=== PATIENT | female | born 1940 | race Native Hawaiian/Other Pacific Islander ===

== ENCOUNTER 2016-10-03 13:39 | Inpatient (IN) | payer OTHER ==
[~2016-10-03] VITALS: Ht 157.5 cm; Wt 81.7 kg
[~2016-10-03 13:39] MED LIST: AMLO5TAB PO; BENZ100C8 PO; CENTRATEX PO; CIPR750T PO; COZAAR25 MG PO; DILTIAZEM240 M1 PO; FURO20TA67 PO; HYDR25TA60 PO; KLOR-CON M2020 MEQ PO; LEVAQUIN250 MG PO; LIPITOR20 MG PO; METF500T PO; METO50TA27 PO; NEXIUM40 M1 PO; ROPINIROLE2 MG PO; TIROSINT75 MCG PO
[2016-10-03 14:08] VITALS: BP 148/68; TEMP 98.1
[2016-10-03 15:00] VITALS: BP 142/72
[2016-10-03 15:03] LABS: PLATELET COUNT 433 K/uL (152-353)
[2016-10-03 15:19] LABS: POTASSIUM 4.8 mmol/L (3.6-5.2)
[2016-10-03] MEDS ORDERED: IRON SUPPLEMEN325 MG OR (15:58)
[2016-10-03] MEDS ORDERED: ASPIRIN CHLD81 MG OR (15:59)
[2016-10-03] MEDS ORDERED: TRAMADOL HCL100 M1 OR (16:01)
[2016-10-03] MEDS ORDERED: MUPI2OIN2 TOP (16:02)
[2016-10-03] MEDS ORDERED: ACYCLOVIR800 MG OR (16:03)
[2016-10-03] MEDS ORDERED: KETO10TA34 PO (16:04)
[2016-10-03] MEDS ORDERED: SMZ/TMP DS1 TAB OR (16:05)
[2016-10-03 16:14] VITALS: BP 138/60
[2016-10-04 01:06] VITALS: BP 141/74; TEMP 98; Ht 157.5 cm; Wt 81.7 kg
[2016-10-04 04:00] VITALS: BP 133/55; TEMP 97.6
[2016-10-04 06:39] LABS: PLATELET COUNT 394 K/uL (152-353)
[2016-10-04 08:00] VITALS: BP 153/89; TEMP 98
[2016-10-04 09:03] LABS: POTASSIUM 4.5 mmol/L (3.6-5.2); SODIUM 124 mmol/L (136-145)
[2016-10-04 12:00] VITALS: BP 137/71; TEMP 98.1
[2016-10-04 16:00] VITALS: BP 142/70; TEMP 98
[2016-10-04 16:19] LABS: POTASSIUM 4.5 mmol/L (3.6-5.2); SODIUM 126 mmol/L (136-145)
[2016-10-04 20:00] VITALS: BP 140/64; TEMP 97.4
[2016-10-05] VITALS (11 sets, daily range): BP systolic 105–150; BP diastolic 46–79; TEMP 97.4–98.1
[2016-10-05 08:49] LABS: PLATELET COUNT 363 K/uL (152-353)
[2016-10-05 09:05] LABS: POTASSIUM 4.4 mmol/L (3.6-5.2); SODIUM 128 mmol/L (136-145)
[2016-10-05 19:42] LABS: POTASSIUM 4.3 mmol/L (3.6-5.2); SODIUM 131 mmol/L (136-145)
== END 2016-10-05 20:25 | disposition home or self-care (01) | DRG 392 ==
LOC: ED 13:39 → MED/SURG 15:45
PROVIDERS: Family Medicine
PROC: 0DB68ZX Excision of Stomach, Via Natural or Artificial Opening Endoscopic, Diagnostic (ICD-10-PCS; principal; 2016-10-05)
DX: K29.00 Acute gastritis without bleeding (principal); E87.1 Hypo-osmolality and hyponatremia; K20.8 Other esophagitis; K21.9 Gastro-esophageal reflux disease without esophagitis; E86.0 Dehydration; B02.9 Zoster without complications; F41.8 Other specified anxiety disorders; I10 Essential (primary) hypertension; I20.8 Other forms of angina pectoris; E11.9 Type 2 diabetes mellitus without complications
CPT/HCPCS: 36415; 80048; 80053; 81000; 82150; 82550; 82948; 83690; 83735; 83880; 84484; 85027; 86318; 93005; 96365; 96366; 99284; J1642; J1650; J2405; J2704; J3490

== ENCOUNTER 2017-01-04 16:00 | Observation (INO) | payer OTHER ==
[~2017-01-04] VITALS: Ht 157.5 cm; Wt 83.5 kg
[~2017-01-04 16:00] MED LIST changes: +ACYCLOVIR800 MG OR; +ASPIRIN CHLD81 MG OR; +IRON SUPPLEMEN325 MG OR; +KETO10TA34 PO; +MUPI2OIN2 TOP; +SMZ/TMP DS1 TAB OR; +TRAMADOL HCL100 M1 OR
[2017-01-04 18:13] LABS: PLATELET COUNT 408 K/uL (152-353)
[2017-01-04 20:03] VITALS: BP 145/70; TEMP 98.6
[2017-01-05 00:29] VITALS: BP 130/59; TEMP 99.2
[2017-01-05 04:00] VITALS: BP 158/78; TEMP 98.1
[2017-01-05 05:20] LABS: PLATELET COUNT 324 K/uL (152-353)
[2017-01-05 06:04] LABS: POTASSIUM 3.7 mmol/L (3.6-5.2); SODIUM 139 mmol/L (136-145)
[2017-01-05 08:00] VITALS: BP 169/86; TEMP 97.9
[2017-01-05 12:00] VITALS: BP 175/87; TEMP 98.2
[2017-01-05 16:00] VITALS: BP 158/90; TEMP 98.6
== END 2017-01-05 18:40 | disposition home or self-care (01) ==
LOC: MED/SURG 16:00
PROVIDERS: ADMIT Family Medicine
DX: E13.65 Other specified diabetes mellitus with hyperglycemia (principal); T78.40XA Allergy, unspecified, initial encounter; L03.115 Cellulitis of right lower limb; L03.116 Cellulitis of left lower limb; B95.62 Methicillin resistant Staphylococcus aureus infection as the cause of diseases classified elsewhere
CPT/HCPCS: 36415; 36591; 80053; 81000; 82948; 83735; 85027; 87040; 87070; 87077; 87101; 87185; 87186; 87205; 96367; 96374; 99220; G0378; G0379; J1450; J3490

== ENCOUNTER 2017-01-12 08:37 | Outpatient (CLI) | payer OTHER | END 2017-01-12 19:06 | disposition home or self-care (01) | LOC: MAMMO 08:37 | DX: Z12.31 Encounter for screening mammogram for malignant neoplasm of breast (principal) | CPT/HCPCS: G0202-TC ==

== ENCOUNTER 2017-01-16 14:07 | Observation (INO) | payer OTHER ==
[~2017-01-16] VITALS: Ht 157.5 cm; Wt 81.2 kg
[2017-01-16 14:22] VITALS: BP 170/85; TEMP 98.4
[2017-01-16 16:23] LABS: PLATELET COUNT 192 K/uL (152-353)
[2017-01-16 19:15] LABS: POTASSIUM 3.8 mmol/L (3.6-5.2); SODIUM 125 mmol/L (136-145)
[2017-01-16 21:00] VITALS: BP 161/72; TEMP 98.2
--- NOTE | 2017-01-16 21:15 | NUR ---
PT UOB WITH ASSISTANCE TO BATHROOM. VOIDED. BACK TO BED WITH ASSISTANCE. PT WITH RED PATCHY AREAS TO HER HANDS AND LOWER EXTREMITIES. PT STATES "IT IS A FUNGUS". PT WITH NOTED HEARING LOSS. STAFF HAS TO SPEAK LOUDER AND SLOWER FOR PT TO UNDERSTAND CONVERSATION. PT DENIES ANY CHEST PAIN OR DISCOMFORT AT THIS TIME. PT IS DIABETIC AND TAKES METFORMIN AT HOME. BLOOD SUGAR CHECKED. BS 143. PT MOVES ALL EXTREMITIES. EXPRESSES THAT SHE HAD JUST GOT DIZZY AND CAME TO ER FOR CHECK UP. POSITIONED IN BED. ORIENTED PT TO ICU EQUIPMENT AND TREATMENT. PT VOICED UNDERSTANDING.
--- NOTE | 2017-01-16 21:20 | NUR ---
2100PM PT NEW ADMIT FROM ER. POSITIONED IN BED. ASSESSMENT TO BE DONE. PT PRESENTLY EATING.
[2017-01-16 22:00] VITALS: BP 137/64
[2017-01-16 23:00] VITALS: BP 149/72
[2017-01-17] VITALS (14 sets, daily range): BP systolic 94–171; BP diastolic 61–90; TEMP 97.43–98; Ht 157.5 cm; Wt 81.2 kg
[2017-01-17 07:15] LABS: POTASSIUM 4.1 mmol/L (3.6-5.2); SODIUM 131 mmol/L (136-145)
--- NOTE | 2017-01-17 08:24 | NUR ---
RESTING IN BED WATCHING TV NO COMPLAINTS. LAB CALLED RESULTS. PT STATES "FEELING OK" DENIES DIZZINESS.
[2017-01-17 11:23] LABS: PLATELET COUNT 370 K/uL (152-353)
--- NOTE | 2017-01-17 12:06 | NUR ---
Pt. TO ROOM 1106 VIA W/C.
--- NOTE | 2017-01-17 12:09 | NUR ---
PT STABLE TO [facility] VIA WC TO RM 1106 [facility]REPORT TO WERO LUNA RN.
--- NOTE | 2017-01-17 22:57 | NUR ---
PT IN BED RESTING WITH EYES CLOSED. NAD NOTED. WILL CONTINUE TO MONITOR.
[2017-01-18] VITALS: BP 137/66; TEMP 98.9
[2017-01-18 04:00] VITALS: BP 142/75; TEMP 99
[2017-01-18 04:11] LABS: PLATELET COUNT 374 K/uL (152-353)
[2017-01-18 04:26] LABS: POTASSIUM 4.4 mmol/L (3.6-5.2); SODIUM 131 mmol/L (136-145)
[2017-01-18 08:00] VITALS: BP 133/62; TEMP 97.8
[2017-01-18 12:00] VITALS: BP 147/78; TEMP 98.4
[2017-01-18 16:00] VITALS: BP 129/61; TEMP 97.8
== END 2017-01-18 20:05 | disposition home or self-care (01) ==
LOC: ED 14:07 → ICU 19:52 → MED/SURG 01-17 12:09
PROVIDERS: Emergency Medicine; Family Medicine; ADMIT Specialist
DX: I45.81 Long QT syndrome (principal); R42 Dizziness and giddiness; I10 Essential (primary) hypertension; F32.89 Other specified depressive episodes; H91.8X9 Other specified hearing loss, unspecified ear; E83.42 Hypomagnesemia; E87.1 Hypo-osmolality and hyponatremia
CPT/HCPCS: 36415; 80053; 81000; 83605; 83735; 84100; 84443; 85027; 93005; 96365; 99220; 99284; G0378; J3411; J3475; J3490

== ENCOUNTER 2017-01-27 07:37 | Day surgery (SDC) | payer OTHER ==
[~2017-01-27] VITALS: Ht 30.5 cm; Wt 0.5 kg
== END 2017-01-27 12:35 | disposition home or self-care (01) ==
LOC: OR 07:37
PROC: 0JPT0XZ Removal of Tunneled Vascular Access Device from Trunk Subcutaneous Tissue and Fascia, Open Approach (ICD-10-PCS; principal; 2017-01-27)
PROC: 0JH60XZ Insertion of Tunneled Vascular Access Device into Chest Subcutaneous Tissue and Fascia, Open Approach (ICD-10-PCS; 2017-01-27)
PROC: 05PY03Z Removal of Infusion Device from Upper Vein, Open Approach (ICD-10-PCS; 2017-01-27)
PROC: 05HM33Z Insertion of Infusion Device into Right Internal Jugular Vein, Percutaneous Approach (ICD-10-PCS; 2017-01-27)
PROC: B543ZZA Ultrasonography of Right Jugular Veins, Guidance (ICD-10-PCS; 2017-01-27)
DX: I87.8 Other specified disorders of veins (principal); T82.898A Other specified complication of vascular prosthetic devices, implants and grafts, initial encounter
CPT/HCPCS: C1788; J0690; J1644; J2704; J3010; J3490

== ENCOUNTER 2017-03-02 17:34 | Observation (INO) | payer OTHER ==
[~2017-03-02] VITALS: Ht 157.5 cm; Wt 79.0 kg
[2017-03-02 20:11] LABS: POTASSIUM 4.3 mmol/L (3.6-5.2); SODIUM 128 mmol/L (136-145)
[2017-03-02 20:21] LABS: PLATELET COUNT 294 K/uL (152-353)
[2017-03-02 20:34] VITALS: BP 127/64; TEMP 97.8
[2017-03-02 23:38] VITALS: BP 162/67; TEMP 97.4; Ht 157.5 cm; Wt 79.0 kg
[2017-03-03] VITALS: BP 135/56; TEMP 97.8
[2017-03-03 04:00] VITALS: BP 122/66; TEMP 97.9
[2017-03-03 05:20] LABS: PLATELET COUNT 330 K/uL (152-353)
[2017-03-03 05:52] LABS: POTASSIUM 4.1 mmol/L (3.6-5.2); SODIUM 133 mmol/L (136-145)
[2017-03-03 08:00] VITALS: BP 135/70; TEMP 97.8
[2017-03-03 12:00] VITALS: BP 124/74; TEMP 97.8
--- NOTE | 2017-03-03 19:38 | NUR ---
1630 DR TOMPKINS HERE AT THIS TIME. NEW ORDERS REC'D TO SET PT UP WITH OUT PT THERAPY FOR VERTIGO AND TX. PT AND FAMILY EXPLAINED AND BOTH VERBALISED UNDERSTANDING. MEDS CALLED INTO [facility] IN [place]. NA CHOLRIDE 1 GM ONE TAB DAILY 4 TABS GIVEN TO PT PER MD ORDERS AND PAHRM.
== END 2017-03-03 19:20 | disposition home or self-care (01) ==
LOC: MED/SURG 17:34
PROVIDERS: ADMIT Family Medicine
DX: E87.1 Hypo-osmolality and hyponatremia (principal); M62.81 Muscle weakness (generalized); E03.9 Hypothyroidism, unspecified; R42 Dizziness and giddiness; E13.620 Other specified diabetes mellitus with diabetic dermatitis
CPT/HCPCS: 36415; 80053; 82948; 83735; 83880; 84100; 85027; 96365; 96366; 99220; G0378; G0379

== ENCOUNTER 2017-12-22 12:30 | Outpatient (CLI) | payer OTHER | END 2017-12-22 22:26 | disposition home or self-care (01) | LOC: RAD 12:30 | DX: M25.561 Pain in right knee (principal); M25.562 Pain in left knee ==

== ENCOUNTER 2018-01-17 10:11 | Outpatient (CLI) | payer OTHER | END 2018-01-17 21:56 | disposition home or self-care (01) | LOC: MAMMO 10:11 | DX: Z12.31 Encounter for screening mammogram for malignant neoplasm of breast (principal) ==

== ENCOUNTER 2018-01-25 09:36 | Outpatient (CLI) | payer OTHER | END 2018-01-25 19:10 | disposition home or self-care (01) | LOC: RAD 09:36 | DX: M54.17 Radiculopathy, lumbosacral region (principal) ==

== ENCOUNTER 2018-02-05 13:30 | Outpatient (CLI) | payer OTHER | END 2018-02-05 22:07 | disposition home or self-care (01) | LOC: RAD 13:30 | DX: M25.551 Pain in right hip (principal); M25.552 Pain in left hip ==

== ENCOUNTER 2018-04-17 09:19 | Outpatient (CLI) | payer OTHER | END 2018-04-17 19:59 | disposition home or self-care (01) | LOC: MRI 09:19 | DX: M54.16 Radiculopathy, lumbar region (principal) ==

== ENCOUNTER 2018-05-16 11:48 | Outpatient (CLI) | payer OTHER ==
[~2018-05-16] VITALS: Ht 157.5 cm; Wt 77.1 kg
== END 2018-05-16 21:34 | disposition home or self-care (01) ==
LOC: INF 11:48
DX: D50.9 Iron deficiency anemia, unspecified (principal)
CPT/HCPCS: 96365; J1439; J1642

== ENCOUNTER 2018-05-24 09:53 | Outpatient (CLI) | payer OTHER ==
[~2018-05-24] VITALS: Ht 162.6 cm; Wt 77.1 kg
== END 2018-05-24 22:08 | disposition home or self-care (01) ==
LOC: INF 09:53
DX: D50.9 Iron deficiency anemia, unspecified (principal)
CPT/HCPCS: 96365; J1439; J1642

== ENCOUNTER 2018-06-20 09:49 | Outpatient (CLI) | payer OTHER | END 2018-06-20 19:18 | disposition home or self-care (01) | LOC: MRI 09:49 | DX: M54.16 Radiculopathy, lumbar region (principal) ==

== ENCOUNTER 2018-10-11 09:35 | Outpatient (CLI) | payer OTHER | END 2018-10-11 22:22 | disposition home or self-care (01) | LOC: RAD 09:35 | DX: Z13.820 Encounter for screening for osteoporosis (principal); Z78.0 Asymptomatic menopausal state ==

== ENCOUNTER 2019-01-03 14:58 | Emergency (ER) | payer OTHER ==
[~2019-01-03] VITALS: Ht 162.6 cm; Wt 77.1 kg
[2019-01-03 15:14] VITALS: TEMP 97.7
[2019-01-03 16:24] LABS: POTASSIUM 3.9 mmol/L (3.6-5.2)
[2019-01-03 16:29] LABS: PLATELET COUNT 385 K/uL (152-353)
[2019-01-03 17:30] VITALS: BP 148/66
== END 2019-01-03 17:30 | disposition home or self-care (01) ==
LOC: ED 14:58
PROVIDERS: Family Medicine
DX: M25.562 Pain in left knee (principal)
CPT/HCPCS: 80053; 85027; 85379; 99283; J1885

== ENCOUNTER 2019-01-11 10:28 | Outpatient (CLI) | payer OTHER | END 2019-01-11 23:24 | disposition home or self-care (01) | LOC: CT 10:28 | DX: E21.2 Other hyperparathyroidism (principal); R42 Dizziness and giddiness ==

== ENCOUNTER 2019-03-13 12:25 | Outpatient (CLI) | payer OTHER | END 2019-03-13 23:26 | disposition home or self-care (01) | LOC: RAD 12:25 → US 12:25 | DX: R60.0 Localized edema (principal); M25.561 Pain in right knee ==

== ENCOUNTER 2019-08-13 14:58 | Outpatient (CLI) | payer OTHER | END 2019-08-13 20:27 | disposition home or self-care (01) | LOC: RAD 14:58 | DX: M54.5 Low back pain (principal); M54.6 Pain in thoracic spine ==

== ENCOUNTER 2019-09-03 14:12 | Outpatient (CLI) | payer OTHER | END 2019-09-03 20:11 | disposition home or self-care (01) | LOC: RAD 14:12 | DX: M48.56XD Collapsed vertebra, not elsewhere classified, lumbar region, subsequent encounter for fracture with routine healing (principal); N95.8 Other specified menopausal and perimenopausal disorders ==

== ENCOUNTER 2019-10-01 14:59 | Outpatient (CLI) | payer OTHER | END 2019-10-01 20:12 | disposition home or self-care (01) | LOC: RAD 14:59 | DX: M47.812 Spondylosis without myelopathy or radiculopathy, cervical region (principal) ==

== ENCOUNTER 2019-10-08 12:53 | Outpatient (CLI) | payer OTHER | END 2019-10-08 22:23 | disposition home or self-care (01) | LOC: MRI 12:53 | DX: M47.812 Spondylosis without myelopathy or radiculopathy, cervical region (principal); M48.56XA Collapsed vertebra, not elsewhere classified, lumbar region, initial encounter for fracture ==

== ENCOUNTER 2019-11-13 14:33 | Outpatient (CLI) | payer OTHER | END 2019-11-13 22:35 | disposition home or self-care (01) | LOC: RAD 14:33 | DX: M17.12 Unilateral primary osteoarthritis, left knee (principal) ==

== ENCOUNTER 2020-06-02 07:27 | Day surgery (SDC) | payer OTHER ==
[~2020-06-02] VITALS: Ht 30.5 cm; Wt 0.5 kg
== END 2020-06-02 08:41 | disposition home or self-care (01) ==
LOC: OR 07:27
PROC: 3E0T3BZ Introduction of Anesthetic Agent into Peripheral Nerves and Plexi, Percutaneous Approach (ICD-10-PCS; principal; 2020-06-02)
PROC: 3E0T33Z Introduction of Anti-inflammatory into Peripheral Nerves and Plexi, Percutaneous Approach (ICD-10-PCS; 2020-06-02)
DX: M47.816 Spondylosis without myelopathy or radiculopathy, lumbar region (principal)
CPT/HCPCS: J1100; J2001

== ENCOUNTER 2020-06-16 07:37 | Day surgery (SDC) | payer OTHER | END 2020-06-16 08:56 | disposition home or self-care (01) | LOC: OR 07:37 | PROC: 3E0T3BZ Introduction of Anesthetic Agent into Peripheral Nerves and Plexi, Percutaneous Approach (ICD-10-PCS; principal; 2020-06-16) | PROC: 3E0T33Z Introduction of Anti-inflammatory into Peripheral Nerves and Plexi, Percutaneous Approach (ICD-10-PCS; 2020-06-16) | DX: M47.816 Spondylosis without myelopathy or radiculopathy, lumbar region (principal) | CPT/HCPCS: J1100; J2001 ==

== ENCOUNTER 2020-07-15 10:01 | Outpatient (CLI) | payer OTHER | END 2020-07-15 19:47 | disposition home or self-care (01) | LOC: RAD 10:01 | PROVIDERS: ATTEND Nurse Practitioner | DX: M25.552 Pain in left hip (principal) ==

== ENCOUNTER 2020-08-12 15:57 | Outpatient (CLI) | payer OTHER | END 2020-08-12 21:11 | disposition home or self-care (01) | LOC: RAD 15:57 | PROVIDERS: ATTEND Physician Assistant | DX: M25.461 Effusion, right knee (principal) ==

== ENCOUNTER 2020-08-20 11:43 | Outpatient (CLI) | payer OTHER | END 2020-08-20 19:25 | disposition home or self-care (01) | LOC: RAD 11:43 | PROVIDERS: ATTEND Nurse Practitioner Family | DX: R07.89 Other chest pain (principal); W19.XXXA Unspecified fall, initial encounter ==

== ENCOUNTER 2020-12-30 12:24 | Outpatient (CLI) | payer OTHER | END 2020-12-30 21:54 | disposition home or self-care (01) | LOC: US 12:24 | PROVIDERS: ATTEND Nurse Practitioner Family | DX: R60.0 Localized edema (principal) ==

== ENCOUNTER 2021-01-05 11:46 | Outpatient (CLI) | payer OTHER | END 2021-01-05 19:49 | disposition home or self-care (01) | LOC: US 11:46 | PROVIDERS: ATTEND Nurse Practitioner Family | DX: I82.411 Acute embolism and thrombosis of right femoral vein (principal) ==

== ENCOUNTER 2021-01-11 11:11 | Outpatient (CLI) | payer OTHER | END 2021-01-11 23:39 | disposition home or self-care (01) | LOC: RAD 11:11 | PROVIDERS: ATTEND Physician Assistant | DX: M25.561 Pain in right knee (principal); M25.562 Pain in left knee ==

== ENCOUNTER 2021-04-02 10:14 | Outpatient (CLI) | payer OTHER | END 2021-04-02 22:36 | disposition home or self-care (01) | LOC: US 10:14 | PROVIDERS: ATTEND Nurse Practitioner Family | DX: I82.411 Acute embolism and thrombosis of right femoral vein (principal) ==

== ENCOUNTER 2021-06-15 12:10 | Outpatient (CLI) | payer OTHER | END 2021-06-15 19:38 | disposition home or self-care (01) | LOC: RAD 12:10 | PROVIDERS: ATTEND Nurse Practitioner Family | DX: Z09 Encounter for follow-up examination after completed treatment for conditions other than malignant neoplasm (principal); Z86.16 Personal history of COVID-19 ==

== ENCOUNTER 2021-07-06 12:03 | Outpatient (CLI) | payer OTHER ==
[2021-07-06 12:27] LABS: PLATELET COUNT 271 K/uL (152-353)
[2021-07-06 13:30] LABS: POTASSIUM 3.8 mmol/L (3.6-5.2)
== END 2021-07-06 21:20 | disposition home or self-care (01) ==
LOC: LABW 12:03
PROVIDERS: ATTEND Family Medicine
DX: R00.1 Bradycardia, unspecified (principal)
CPT/HCPCS: 36415; 80053; 82550; 84484; 85027

== ENCOUNTER 2021-07-22 09:54 | Outpatient (CLI) | payer OTHER | END 2021-07-22 19:18 | disposition home or self-care (01) | LOC: MAMMO 09:54 | PROVIDERS: ATTEND Family Medicine | DX: N64.4 Mastodynia (principal) | CPT/HCPCS: G0279 ==

== ENCOUNTER 2021-08-06 10:43 | Outpatient (CLI) | payer OTHER | END 2021-08-06 20:36 | disposition home or self-care (01) | LOC: RESP 10:43 | PROVIDERS: ATTEND Family Medicine | DX: R00.1 Bradycardia, unspecified (principal) ==

== ENCOUNTER 2022-03-31 08:00 | Outpatient (CLI) | payer OTHER ==
[~2022-03-31] VITALS: Ht 157.5 cm; Wt 80.5 kg
[2022-03-31 08:13] VITALS: BP 133/64; TEMP 98.5
[2022-03-31 09:15] VITALS: BP 121/53; TEMP 98.7
--- NOTE | 2022-03-31 09:20 | NUR ---
0813 PT AMBULATED TO ROOM 1128 USING A QUAD CANE, ACCOMPANIED BY HER SON. VS OBTAINED. 0820 PIV X 2 ATTEMPTS UNSUCCESSFUL. 0840 PT SON INFORMED DYE JIG OPERATOR THAT PT HAS A PAC. NOTIFIED PHARMACY TO SEE IF ORDERED MEDICATION COULD BE ADMINISTERED VIA PAC. 0855 PHARMACY NOTIFIED DYE JIG OPERATOR THAT MEDICATION COULD BE ADMINISTERED VIA PAC. 0859 PAC ACCESSED WITH 20G KELLY ASPIRATED BLOOD. FLUSHED WITH 10ML NS SECURED WITH TEGADERM. 0900 BEBTELOVIMAB IVP OVER 30SECONDS FOLLOWED BY 20ML NS. PT TOLERATED WITH NO COMPLICATIONS. WILL MONITOR VS PER ORDERS.
[2022-03-31 09:30] VITALS: BP 122/54; TEMP 98.4
[2022-03-31 10:00] VITALS: BP 119/46; TEMP 98.3
--- NOTE | 2022-03-31 10:59 | NUR ---
0915 PT DENIES ANY COMPLAINTS AT THIS TIME. NO ADVERSE REACTION SUSPECTED. 0930 PT DENIES ANY COMPLAINTS AT THIS ITME NO ADVERSE REACTION SUSPECTED 1000 PAC RCW FLUSHED WITH HEPARIN. PER PROTOCOL. 20G KELLY D/C INTACT SITE CARE PROVIDED. PT AMBULATED OUT OF FACILITY USING QUADCANE ACCOMPANIED BY HER SO TO POV IN NO DISTRESS.
== END 2022-03-31 19:39 | disposition home or self-care (01) ==
LOC: INF 08:00
PROVIDERS: ATTEND Family Medicine
DX: Z23 Encounter for immunization (principal); U07.1 COVID-19
CPT/HCPCS: 96374; 96375; Q0222

== ENCOUNTER 2022-06-22 11:37 | Outpatient (CLI) | payer OTHER | END 2022-06-22 21:19 | disposition home or self-care (01) | LOC: RAD 11:37 | PROVIDERS: ATTEND Nurse Practitioner Family | DX: M54.12 Radiculopathy, cervical region (principal); M25.551 Pain in right hip; M25.552 Pain in left hip ==

== ENCOUNTER 2022-11-03 12:13 | Outpatient (CLI) | payer OTHER | END 2022-11-03 19:20 | disposition home or self-care (01) | LOC: RAD 12:13 | PROVIDERS: ATTEND Nurse Practitioner Family | DX: R05.3 Chronic cough (principal) ==

== ENCOUNTER 2022-12-21 12:06 | Outpatient (CLI) | payer OTHER | END 2022-12-21 19:32 | disposition home or self-care (01) | LOC: US 12:06 | PROVIDERS: ATTEND Nurse Practitioner Family | DX: M25.571 Pain in right ankle and joints of right foot (principal); R60.0 Localized edema ==

== ENCOUNTER 2023-03-01 11:39 | Outpatient (CLI) | payer OTHER ==
[2023-03-01 12:01] LABS: PLATELET COUNT 316 K/uL (152-353)
[2023-03-01 12:08] LABS: POTASSIUM 4.3 mmol/L (3.6-5.2)
== END 2023-03-01 20:08 | disposition home or self-care (01) ==
LOC: RESP 11:39 → RAD 11:39
PROVIDERS: ATTEND Nurse Practitioner Family
DX: Z01.818 Encounter for other preprocedural examination (principal)
CPT/HCPCS: 36415; 80053; 85027; 93005